=== PATIENT | female | born 1990 | race Caucasian/White ===

== ENCOUNTER 2016-12-02 16:42 | Outpatient (CLI) | payer MEDICAID ==
[2016-12-02 18:18] VITALS: BP 126/75; BMI 44.2
--- NOTE | 2016-12-02 18:33 | NUR ---
IV STARTED IN LEFT FA WITH #20 NEEDLE X 1 TRY
--- NOTE | 2016-12-02 21:15 | NUR ---
REC'D PER WC FROM OUTPATIENT DEPT TO ROOM 2218 FOR BLOOD TRANSFUSION. IV PATENT LEFT FORE ARM MONITORING VS DURING BLOOD TRANSFUSION.
--- NOTE | 2016-12-02 22:20 | NUR ---
BLOOD COMPLETED NO REACTION NOTED. NS AT [facility] TO FLUSH TUBING.
--- NOTE | 2016-12-02 23:27 | NUR ---
TRANSFUSION COMPLETED NO REACTION DISCHARGED HOME IV REMOVED WITH TIP INTACT. D/C PER W/D WITH FAMILY MEMBER
== END 2016-12-02 23:29 | disposition home or self-care (01) ==
LOC: D.OPS 16:42 → D.MS 21:48 → D.OPS 23:29
DX: D62 Acute posthemorrhagic anemia (principal)